=== PATIENT | male | born 2000 | race African-American/Black ===

== ENCOUNTER 2020-08-11 23:18 | Emergency (ER) | payer OTHER ==
[2020-08-12] MEDS ORDERED: FAMOTIDINE 20 MG/2 ML VIAL IV ONE (00:15)
[2020-08-12] MEDS ORDERED: NA CHLORIDE 0.9% 1,000 ML ONE (00:15)
[2020-08-12] MEDS ORDERED: ONDANSETRON 4 MG/2 ML VIAL ONE (00:15)
[2020-08-12 00:20] LABS: Absolute Lymphocytes (CBC) 1.4 K/uL (0.7-4.9); Basophils % 0.8 % (0-1.3); Hematocrit 43.7 % (39.6-49.0); Lymphocytes % 26.9 % (15.3-44.8); MPV 7.6 fL (7.6-11.3); RBC Red Blood Cell Count 4.84 M/uL (4.33-5.43)
[2020-08-12 01:35] LABS: Blood Morphology Comment NOT SEEN (NOT SEEN); Platelet Estimate ADEQ
[2020-08-12 01:43] LABS: ALT/SGPT 39 U/L (12-78); AST/SGOT 68 U/L (15-37); Albumin 4.8 g/dL (3.4-5.0); Alkaline Phosphatase 60 U/L (45-117); BUN Blood Urea Nitrogen 20 mg/dL (7-18); Bicarbonate 21 mmol/L (21-32); Bilirubin Direct 0.6 mg/dL (0-0.2); Bilirubin Total 1.7 mg/dL (0.2-1.0); Glucose Level 69 mg/dL (74-106); Lipase 113 U/L (73-393); Potassium 4.2 mmol/L (3.5-5.1); Sodium Level 138 mmol/L (136-145)
--- NOTE | 2020-08-12 03:37 | ER ---
Nurse's Notes [facility] Name: Hugh Hunt Age: 20 yrs Sex: Male : 2000 Arrival Date: 08/11/2020 Time: 23:20 Bed 20 Private MD: Diagnosis: Abdominal Pain;Nausea and vomiting;Constipation Presentation: 08/11 23:33 Chief complaint: Patient states: right sided rib pain for 5 days, unable to eat, em reports N/V denies diarrhea or fever, pt has 2 correctional officers at bedside. Coronavirus screen: At this time, unable to obtain information related to travel outside the [place] nausea, vomiting. Ebola Screen: Patient negative for fever greater than or equal to 101.5 degrees Fahrenheit, and additional compatible Ebola Virus Disease symptoms Patient denies exposure to infectious person. Patient denies travel to an Ebola-affected area in the 21 days before illness onset. No symptoms or risks identified at this time. Initial Sepsis Screen: Does the patient meet any 2 criteria? No. Patient's initial sepsis screen is negative. Does the patient have a suspected source of infection? Yes: Acute abdominal pain. Risk Assessment: Do you want to hurt yourself or someone else? Patient reports no desire to harm self or others. Onset of symptoms was August 06, 2020. 23:33 Method Of Arrival: Wheelchair em 23:33 Acuity: MIKA 3 em Historical: - Allergies: 23:36 No Known Allergies; em - PMHx: 23:36 Asthma; em - PSHx: 23:36 None; em - Immunization history:: Adult Immunizations up to date. - Social history:: Smoking status: Patient denies any tobacco usage or history of. Screenin:37 Abuse screen: Denies threats or abuse. Nutritional screening: No deficits noted. em Tuberculosis screening: No symptoms or risk factors identified. Fall Risk None identified. Assessment: 08/12 00:00 General: Appears in no apparent distress. comfortable, Behavior is calm, cooperative, rr5 appropriate for age. 00:00 Pain: Complains of pain in right upper quadrant. Neuro: Level of Consciousness is rr5 awake, alert, obeys commands, Oriented to person, place, time. Cardiovascular: Capillary refill < 3 seconds Patient's skin is warm and dry. Respiratory: Airway is patent Respiratory effort is even, unlabored, Respiratory pattern is regular, symmetrical. GI: Abdomen is round non-distended, Reports upper abdominal pain, nausea, vomiting. : No signs and/or symptoms were reported regarding the genitourinary system. EENT: No signs and/or symptoms were reported regarding the EENT system. Derm: Skin is intact, is healthy with good turgor, Skin temperature is warm. Musculoskeletal: Capillary refill < 3 seconds. 01:15 Reassessment: Patient appears in no apparent distress at this time. Patient is alert, rr5 oriented x 3, equal unlabored respirations, skin warm/dry/pink. awaiting for results. 02:49 Reassessment: Patient and/or family updated on plan of care and expected duration. Pain fu level reassessed. Patient is alert, oriented x 3, equal unlabored respirations, skin warm/dry/pink. 2 retirement personnel present. 03:21 Reassessment: tolerated po challenge, denies abdominal pain, nausea and vomiting. fu 03:33 Reassessment: Dr. Lara in patient room. fu Vital Signs: 08/11 23:33 BP 128 / 66; Pulse 56; Resp 18; Temp 98.1(O); Pulse Ox 100% on R/A; Weight 90.72 kg; em Height 6 ft. 0 in. (182.88 cm); Pain 10/10; 08/12 01:00 BP 121 / 80; Pulse 60; Resp 16; Pulse Ox 98% ; rr5 01:51 BP 115 / 75; Pulse 58; Resp 17; Pulse Ox 100% ; rr5 03:00 BP 118 / 67; Pulse 51; Resp 16; Pulse Ox 100% on R/A; Pain 0/10; fu 08/11 23:33 Body Mass Index 27.12 (90.72 kg, 182.88 cm) em ED Course: 08/11 23:20 Patient arrived in ED. cf2 23:27 Ian Lara MD is Attending Physician. mh7 23:35 Triage completed. em 23:36 Arm band placed on. em 23:37 Patient has correct armband on for positive identification. Bed in low position. Side em rails up X2. Adult w/ patient. 2 correctional officers at bedside. Pulse ox on. NIBP on. 23:57 Lott, Ronen, RN is Primary Nurse. rr5 08/12 00:05 Inserted saline lock: 20 gauge in right antecubital area, using aseptic technique. rr5 Blood collected. 02:00 No provider procedures requiring assistance completed. fu 02:28 CT Abd/Pelvis - IV Contrast Only In Process Unspecified. EDMS 03:53 Basic Metabolic Panel Sent. fu 03:53 CBC with Diff Sent. fu 03:53 Hepatic Function Sent. fu 03:53 Lipase Sent. fu 03:55 IV discontinued, bleeding controlled, Pressure dressing applied. fu Administered Medications: 00:05 Drug: NS 0.9% 1000 ml Route: IV; Rate: 1000 ml; Site: right antecubital; rr5 01:00 Follow up: Response: No adverse reaction; IV Status: Completed infusion; IV Intake: rr5 1000ml 00:05 Drug: Pepcid 20 mg Route: IVP; Site: right antecubital; rr5 01:00 Follow up: Response: No adverse reaction rr5 00:07 Drug: Zofran (Ondansetron) 4 mg Route: IVP; Site: right antecubital; rr5 01:05 Follow up: Response: No adverse reaction rr5 Intake: 01:00 IV: 1000ml; Total: 1000ml. rr5 Outcome: 03:36 Discharge ordered by . [facility] 03:55 Discharged to correctional facility with 2 correctional officers fu 03:55 Condition: stable 03:55 Discharge instructions given to patient, Instructed on discharge instructions, follow up and referral plans. Demonstrated understanding of instructions, follow-up care, Prescriptions given X 4. 03:57 Patient left the ED. fu Signatures: Dispatcher [employer] EDSC Reggie Holloway, RN JOELLE Brenton Brown RN JOELLE Ronen Lott, RN RN rr5 Albin Ortiz cf2 Ian Lara MD MD 7
--- NOTE | 2020-08-12 03:37 | EDPHYS ---
Physician Documentation [facility] Name: Hugh Hunt Age: 20 yrs Sex: Male : 2000 Arrival Date: 08/11/2020 Time: 23:20 Bed 20 Private MD: ED Physician Ian Lara HPI: 08/11 23:58 This 20 yrs old Black Male presents to ER via Wheelchair with complaints of Vomiting, mh7 Abdominal Pain, Decreased Appetite, FEELS DEHYDRATED. 23:58 The patient presents to the emergency department with nausea, that is moderate, mh7 vomiting, that is intermittent, abdominal pain, of the right upper quadrant, described as crampy, intermittent, waxing and waning. Onset: The symptoms/episode began/occurred 5 day(s) ago. Possible causes: unknown. The symptoms are aggravated by food , The symptoms are alleviated by nothing. Associated signs and symptoms: Pertinent positives: abdominal pain, constipation, nausea, vomiting, Pertinent negatives: belching, diarrhea, fever, flatulence, GI bleeding, hematuria. Severity of symptoms: At their worst the symptoms were moderate 2 day(s) ago, in the emergency department the symptoms are unchanged. Historical: - Allergies: 23:36 No Known Allergies; em - PMHx: 23:36 Asthma; em - PSHx: 23:36 None; em - Immunization history:: Adult Immunizations up to date. - Social history:: Smoking status: Patient denies any tobacco usage or history of. ROS: 23:58 Constitutional: Negative for fever, chills, and weight loss, Eyes: Negative for injury, mh7 pain, redness, and discharge, ENT: Negative for injury, pain, and discharge, Neck: Negative for injury, pain, and swelling, Cardiovascular: Negative for chest pain, palpitations, and edema, Respiratory: Negative for shortness of breath, cough, wheezing, and pleuritic chest pain, Back: Negative for injury and pain, : Negative for injury, bleeding, discharge, and swelling, MS/Extremity: Negative for injury and deformity, Skin: Negative for injury, rash, and discoloration, Neuro: Negative for headache, weakness, numbness, tingling, and seizure, Psych: Negative for depression, anxiety, suicide ideation, homicidal ideation, and hallucinations, Allergy/Immunology: Negative for hives, rash, and allergies, Endocrine: Negative for neck swelling, polydipsia, polyuria, polyphagia, and marked weight changes, Hematologic/Lymphatic: Negative for swollen nodes, abnormal bleeding, and unusual bruising. Exam: 23:58 Constitutional: This is a well developed, well nourished patient who is awake, alert, mh7 and in no acute distress. Head/Face: Normocephalic, atraumatic. Eyes: Pupils equal round and reactive to light, extra-ocular motions intact. Lids and lashes normal. Conjunctiva and sclera are non-icteric and not injected. Cornea within normal limits. Periorbital areas with no swelling, redness, or edema. Neck: Trachea midline, no thyromegaly or masses palpated, and no cervical lymphadenopathy. Supple, full range of motion without nuchal rigidity, or vertebral point tenderness. No Meningismus. Chest/axilla: Normal chest wall appearance and motion. Nontender with no deformity. No lesions are appreciated. Cardiovascular: Regular rate and rhythm with a normal S1 and S2. No gallops, murmurs, or rubs. Normal PMI, no JVD. No pulse deficits. Respiratory: Lungs have equal breath sounds bilaterally, clear to auscultation and percussion. No rales, rhonchi or wheezes noted. No increased work of breathing, no retractions or nasal flaring. Back: No spinal tenderness. No costovertebral tenderness. Full range of motion. Skin: Warm, dry with normal turgor. Normal color with no rashes, no lesions, and no evidence of cellulitis. MS/ Extremity: Pulses equal, no cyanosis. Neurovascular intact. Full, normal range of motion. Neuro: Awake and alert, GCS 15, oriented to person, place, time, and situation. Cranial nerves II-XII grossly intact. Motor strength 5/5 in all extremities. Sensory grossly intact. Cerebellar exam normal. Normal gait. Psych: Awake, alert, with orientation to person, place and time. Behavior, mood, and affect are within normal limits. 08/12 06:09 Abdomen/GI: Inspection: abdomen appears normal, Bowel sounds: normal, in all quadrants, mh7 Palpation: moderate abdominal tenderness, in the epigastric area, right upper quadrant and left upper quadrant, mass, is not appreciated, rebound tenderness, is not appreciated, voluntary guarding, is not appreciated, involuntary guarding, is not appreciated, no appreciated organomegaly, Rectal exam: the exam is deferred, because of patient request, Indicators: McBurney's point is not tender, Spicer's sign is negative, Rovsing's sign is negative, Obturator sign is negative, Psoas sign is negative, Liver: no appreciated palpable abnormalities, Hernia: not appreciated. Vital Signs: 08/11 23:33 BP 128 / 66; Pulse 56; Resp 18; Temp 98.1(O); Pulse Ox 100% on R/A; Weight 90.72 kg; em Height 6 ft. 0 in. (182.88 cm); Pain 10/10; 08/12 01:00 BP 121 / 80; Pulse 60; Resp 16; Pulse Ox 98% ; rr5 01:51 BP 115 / 75; Pulse 58; Resp 17; Pulse Ox 100% ; rr5 03:00 BP 118 / 67; Pulse 51; Resp 16; Pulse Ox 100% on R/A; Pain 0/10; fu 08/11 23:33 Body Mass Index 27.12 (90.72 kg, 182.88 cm) em MDM: 03:33 Differential diagnosis: Nonspecific abd pain, gastritis, cholecystitis, pancreatitis, 7 appendicitis, viral gastroenteritis. Data reviewed: vital signs, nurses notes, lab test result(s), amylase and lipase, CBC, electrolytes, radiologic studies, CT scan. Data interpreted: Pulse oximetry: on room air is 100 %. Interpretation: normal. Counseling: I had a detailed discussion with the patient and/or guardian regarding: the historical points, exam findings, and any diagnostic results supporting the discharge/admit diagnosis, lab results, radiology results, the need for outpatient follow up, to return to the emergency department if symptoms worsen or persist or if there are any questions or concerns that arise at home. Response to treatment: the patient's symptoms have resolved after treatment, the patient's blood pressure is in an acceptable range, mental status has returned to baseline, the patient no longer shows bradycardia, the patient is not short of breath, the patient is not tachycardic, the patient's pain is gone, the patient's temperature has normalized. 03:[address] [facility] 08/11 23:52 Order name: Basic Metabolic Panel [facility] 08/11 23:52 Order name: CBC with Diff [facility] 08/11 23:52 Order name: Hepatic Function [facility] 08/11 23:52 Order name: Lipase [facility] 08/11 23:52 Order name: Basic Metabolic Panel; Complete Time: 01:49 EDMS 08/11 23:52 Order name: CBC with Automated Diff; Complete Time: 01:42 EDMS 08/11 23:52 Order name: Liver (Hepatic) Function; Complete Time: 01:49 EDMS 08/11 23:52 Order name: Lipase; Complete Time: 01:49 EDMS 08/12 00:33 Order name: Manual Differential; Complete Time: 01:42 EDMS 08/12 01:22 Order name: Urine Dipstick--Ancillary (enter results) [facility] 08/12 01:50 Order name: CT Abd/Pelvis - IV Contrast Only [facility] 08/11 23:52 Order name: IV Saline Lock; Complete Time: 00:10 [facility] 08/11 23:52 Order name: Labs collected and sent; Complete Time: 00:10 [facility] 08/11 23:52 Order name: Urine Dipstick-Ancillary (obtain specimen); Complete Time: 01:44 [facility] 08/12 02:55 Order name: PO challenge; Complete Time: 02:56 [facility] Administered Medications: 00:05 Drug: NS 0.9% 1000 ml Route: IV; Rate: 1000 ml; Site: right antecubital; rr5 01:00 Follow up: Response: No adverse reaction; IV Status: Completed infusion; IV Intake: rr5 1000ml 00:05 Drug: Pepcid 20 mg Route: IVP; Site: right antecubital; rr5 01:00 Follow up: Response: No adverse reaction rr5 00:07 Drug: Zofran (Ondansetron) 4 mg Route: IVP; Site: right antecubital; rr5 01:05 Follow up: Response: No adverse reaction rr5 Disposition: 08/12/20 03:36 Discharged to Home. Impression: Abdominal Pain, Nausea and vomiting, Constipation. - Condition is Stable. - Discharge Instructions: Constipation, Adult, [id number], Nausea and Vomiting, Adult, [id number], Abdominal Pain, Adult, [id number]. - Prescriptions for Dulcolax (bisacodyl) 5 mg Oral tablet,delayed release (DR/EC) - take 1 tablet by ORAL route once daily As needed; 5 tablet. Zofran ODT 4 mg Oral tablet,disintegrating - place 1 tablet by TRANSLINGUAL route every 8 hours As needed; 6 tablet. Bentyl 20 mg Oral Tablet - take 1 tablet by ORAL route every 6 hours As needed; 20 tablet. Pepcid 20 mg Oral Tablet - take 1 tablet by ORAL route every 12 hours for 5 days; 10 tablet. - Medication Reconciliation Form, Thank You Letter, Antibiotic Education, Prescription Opioid Use form. - Follow up: Private Physician; When: 1 - 2 days; Reason: Worsening of condition, Recheck today's complaints, Continuance of care, Re-evaluation by your physician. - Problem is new. - Symptoms have improved. Signatures: Dispatcher [employer] EDReggie Jimenes, RN RN Brenton Glasgow RN Ronen Mary RN RN rr5 Ian Lara MD MD 7 Corrections: (The following items were deleted from the chart) 03:40 03:36 08/12/2020 03:36 Discharged to Home. Impression: Abdominal Pain; Nausea and mh7 vomiting. Condition is Stable. Forms are Medication Reconciliation Form, Thank You Letter, Antibiotic Education, Prescription Opioid Use. Follow up: Private Physician; When: 1 - 2 days; Reason: Worsening of condition, Recheck today's complaints, Continuance of care, Re-evaluation by your physician. Problem is new. Symptoms have improved. mh7 03:57 03:40 08/12/2020 03:36 Discharged to Home. Impression: Abdominal Pain; Nausea and fu vomiting; Constipation. Condition is Stable. Discharge Instructions: Nausea and Vomiting, Adult, [id number], Abdominal Pain, Adult, [id number]. Prescriptions for Dulcolax (bisacodyl) 5 mg Oral tablet,delayed release (DR/EC) - take 1 tablet by ORAL route once daily As needed; 5 tablet, Zofran ODT 4 mg Oral tablet,disintegrating - place 1 tablet by TRANSLINGUAL route every 8 hours As needed; 6 tablet, Bentyl 20 mg Oral Tablet - take 1 tablet by ORAL route every 6 hours As needed; 20 tablet, Pepcid 20 mg Oral Tablet - take 1 tablet by ORAL route every 12 hours for 5 days; 10 tablet. and Forms are Medication Reconciliation Form, Thank You Letter, Antibiotic Education, Prescription Opioid Use. Follow up: Private Physician; When: 1 - 2 days; Reason: Worsening of condition, Recheck today's complaints, Continuance of care, Re-evaluation by your physician. Problem is new. Symptoms have improved. mh7
[2020-08-12 03:42] LABS: Urine Blood TRACE (NEG); Urine Glucose NEGATIVE (NEG); Urine Protein 3+ (NEG); Urine Specific Gravity >1.030 (1.005-1.030); Urine pH 5.5 (5.0-7.0)
[2020-08-12 04:02] VITALS: TEMP 98.1
[2020-08-12 04:04] VITALS: O2SAT 100
[2020-08-12 04:05] VITALS: BP 118/67
--- NOTE | 2020-08-13 12:51 | RAD REPORT ---
EXAM DESCRIPTION: CT - Abdomen Pelvis W Contrast - 08/12/2020 4:33 am CLINICAL HISTORY: 20 years, Male, Abd pain;Nausea / vomiting right upper quadrant pain with nausea COMPARISON: None TECHNIQUE: Contrast-enhanced images of the abdomen and pelvis were performed utilizing 5 m slice thi ckness at 5 mm interval reconstruction from the lung bases to the ischial tuberosities after the admi nistration of precontrast. No dosing amount was provided for interpretation. In addition delayed port al venous phase were also generated. In addition multiplanar reformats in the coronal and sagittal plane were obtained and reviewed. An individualized dose optimization technique, Automated Exposure Control, was utilized for the perfo rmed procedure. FINDINGS: The lung bases demonstrate to be clear. The liver demonstrate decreased attenuation suggesting mild fatty infiltration. Otherwise the liver, gallbladder, pancreas, spleen and adrenal glands demonstrate to be unremarkable, no focal lesions are noted. The kidneys demonstrate normal uptake of contrast media. No nephrolithiasis and/or hydronephrosis w as identified. Grossly the unopacified stomach, small bowel and large bowel demonstrate to be within normal limits. There is no evidence for bowel dilatation and/or free air. Minimal amount of contrast is identified w ithin the right site colon The appendix is normal. The urinary bladder demonstrate to be unremarkable. The prostate gland is normal. The aorta demon strate to be normal. There is no retroperitoneal lymphadenopathy. There is no evidence for ascites and/or significant abnormal fluid collections. The rest of the soft tissue and bony structures are wi thin normal limits. IMPRESSION: Fatty infiltration involving the liver. Otherwise unremarkable CT examination of the abdomen and pelvis. No evidence for acute intra-abdominal process. Electronically signed by: Jaron Shaw MD 08/12/2020 2:37 AM CDT Due to temporary technical issues with the PACS/Fluency reporting system, reports are being signed by the in house radiologist without review as a courtesy to ensure prompt reporting. The interpreting r adiologist is fully responsible for the content of the report.
== END 2020-08-12 03:57 | disposition home or self-care (01) ==
LOC: ER 23:18
DX: K59.00 Constipation, unspecified (principal); R11.2 Nausea with vomiting, unspecified
CPT/HCPCS: 96361; 85025; 80048; 36415; 80076; 81003; 83690; 74177; 96375; 96374; 99284; Q9967